=== PATIENT | female | born 1950 | race Caucasian/White ===

== ENCOUNTER → 2016-08-01 | Outpatient (CLI) | payer OTHER | LOC: BMCIMAGING 13:38 | PROVIDERS: ATTEND Internal Medicine | DX: R07.81 Pleurodynia (principal); Z80.3 Family history of malignant neoplasm of breast ==

== ENCOUNTER → 2016-08-06 | Outpatient (CLI) | payer OTHER | LOC: FIMAGING 10:26 | PROVIDERS: ATTEND Internal Medicine | DX: R07.81 Pleurodynia (principal); Z85.3 Personal history of malignant neoplasm of breast | CPT/HCPCS: A9503 ==

== ENCOUNTER → 2016-09-27 | Outpatient (CLI) | payer OTHER | LOC: FIMAGING 14:49 | PROVIDERS: ATTEND Internal Medicine | DX: Z13.820 Encounter for screening for osteoporosis (principal); M85.80 Other specified disorders of bone density and structure, unspecified site; Z85.3 Personal history of malignant neoplasm of breast ==